=== PATIENT | female | born 1990 ===

== ENCOUNTER 2020-11-03 03:11 | Emergency (ER) | payer MEDICAID ==
[~2020-11-03] VITALS: Ht 162.6 cm; Wt 54.7 kg
[2020-11-03 03:14] VITALS: BP 131/95
--- NOTE | 2020-11-03 04:10 | NUR ---
PT HOWIE. SIGNED FORM FOR REGISTRATION.
== END 2020-11-03 04:25 | disposition left against medical advice (07) ==
LOC: ED 04:10
DX: R11.2 Nausea with vomiting, unspecified (principal); R51.9 Headache, unspecified; Z53.21 Procedure and treatment not carried out due to patient leaving prior to being seen by health care provider